=== PATIENT | male | born 1990 | race Caucasian/White ===

== ENCOUNTER 2024-08-09 18:58 | Outpatient (REF) | payer SELFPAY ==
[2024-08-09 20:58] LABS: Bilirubin Negative (Negative); Blood Negative (Negative); Clarity Clear (Clear); Glucose Negative (Negative); Ketones Negative (Negative); Leukocyte Esterase Negative (Negative); Nitrite Negative (Negative); Specific Gravity 1.025 (1.005-1.025); Urobilinogen 0.2 mg/dL (Up to 0.2); pH 5.5 (5-8)
[2024-08-11 11:56] LABS: Chlamydia Result Negative (Negative); GC Result Negative (Negative)
== END 2024-08-09 18:59 | disposition home or self-care (01) ==
LOC: LBN 18:58
PROVIDERS: PCP Nurse Practitioner Family; Visit Provider Physician Assistant Medical
DX: Z11.59 Encounter for screening for other viral diseases (principal); N50.811 Right testicular pain
CPT/HCPCS: 87491; 87591; 81003; 87086

== ENCOUNTER 2025-07-15 10:22 | Emergency (ER) | payer OTHER, SELFPAY ==
[2025-07-15 10:22] VITALS: BP 123/93; PULSE 104; RESP 18; TEMP 37.1; O2SAT 99
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
[2025-07-15] MEDS: Acetaminophen 500 MG TAB 1000 MG PO (11:00)
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
[2025-07-15 12:27] VITALS: BP 148/107; PULSE 88; RESP 12; O2SAT 96
== END 2025-07-15 12:43 | disposition home or self-care (01) ==
PROVIDERS: Emergency Provider Nurse Practitioner Family; PCP Nurse Practitioner Family
DX: S00.83XA Contusion of other part of head, initial encounter (principal); Y04.8XXA Assault by other bodily force, initial encounter; E04.1 Nontoxic single thyroid nodule
CPT/HCPCS: 99284; 99283; 70450; 70486